=== PATIENT | male | born 1990 | race Caucasian/White ===

== ENCOUNTER 2021-01-04 13:03 | Inpatient (IN) | payer OTHER, SELFPAY ==
[2021-01-04] VITALS (38 sets, daily range): BP systolic 108–168; BP diastolic 43–95; PULSE 95–182; RESP 3–43; TEMP 36.6–37.1; O2SAT 94–100
--- NOTE | 2021-01-04 13:09 | XR_ITS ---
WS: [id number] Exam: XR chest 1V portable [id number] Date/Time of Exam: 01/04/2021 1:13 PM Reason For Exam: dyspnea/cough No prior studies. Findings: The lungs are clear and fully expanded. Costophrenic angles are sharp. No infiltrates. Bronchovascula r relief appears normal. Cardiac silhouette is unremarkable. Bony elements are intact. XR/XR chest 1V portable [id number] IMPRESSION: Unremarkable chest radiograph.
--- NOTE | 2021-01-04 13:11 | W.ED.PSYCH ---
HPI - Psych General: Chief Complaint: Overdose Stated Complaint: OVERDOSE Time Seen by Provider: 01/04/21 13:09 History of Present Illness: HPI Narrative: 30-year-old male with multiple medications in attempt to harm himself. He had told both EMS and me when he first arrived to that he intended to kill himself by taking the medications. According to the father he has done this before his is a history of methamphetamine use on arrival here. He appears hypermanic behaving erratically consistent with methamphetamine intoxication. He does admit to me he was trying to harm himself. He is fixated on talking to his father immediately. On arrival he is tachycardic and tachypneic his sats are normal temperature is normal. MD complaint: suicidal ideation Onset (ago): minute(s) Duration: constant History of same: Yes Relieving factors: none Exacerbating factors: none Associated psychiatric symptoms: none Associated symptoms: Reports no associated symptoms Treatments prior to arrival: none If self harm: admits thoughts of self harm, has plan, has acted on plan and intentional overdose Review of Systems Const: Denies: fever(s), chills, body aches, fatigue or malaise ENMT: Denies: throat pain, ear or mastoid pain, nasal discharge or nasal congestion Card: Denies: chest pain or edema Resp: Denies: dyspnea or productive cough GI: Denies: abdominal pain, nausea, vomiting, diarrhea, constipation or hematochezia : Denies: flank pain, dysuria, urinary frequency or urinary urgency PFS ED PFSH: Medical History Heart problem Describes tissue around the heart . Is not sure about details. It was in his teens. States probably due to early drug use. When asked if had to take IV antibiotics for a long time states he is. 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 Family History Sister Vesicoureteral reflux Social History Smoking and tobacco status: current every day smoker cigarettes [ Other cigarette details: 1-1.5 ppd ] Alcohol intake: never Substance/Drug Use: never Lives independently: No Household members: family and other Details: father Marital status: Single Current occupational status: unemployed Physical Exam Const: COMMON NORMALS: no acute distress GENERAL APPEARANCE: cooperative and comfortable ORIENTATION/CONSCIOUSNESS: Yes awake, Yes oriented to person, Yes oriented to place and Yes oriented to time HENMT: COMMON NORMALS: normocephalic, atraumatic and hearing grossly normal bilaterally HEAD & SCALP: normocephalic and atraumatic Neck/C-Spine: COMMON NORMALS: no JVD Resp: COMMON NORMALS: normal respiratory effort, No retractions, No use of accessory muscles and clear to auscultation bilaterally AUSCULTATION: clear to auscultation bilaterally Cardio: COMMON NORMALS: no JVD, regular rate, regular rhythm and No murmurs present (Cardio) RATE: regular rate RHYTHM: regular rhythm GI: COMMON NORMALS: Soft to palpation and No hepatosplenomegaly present AUSCULTATION: Yes normoactive bowel sounds PALPATION: Yes Soft to palpation, No Tenderness to palpation present (GI), No Guarding due to palpation present (GI) and Yes No hepatosplenomegaly present Extremity: COMMON NORMALS: normal to inspection, capillary refill normal, no clubbing, cyanosis or edema, no calf tenderness and no pedal edema Neuro: SENSORIUM/ORIENTATION: Yes oriented to person, Yes oriented to place and Yes oriented to time Skin: COMMON NORMALS: no rashes or lesions noted GENERAL SKIN EXAM: no rashes or lesions noted Face to Face: Restrn/Seclusion Events leading up to initiation: Combative/Striking out at staff or others Evaluation of patient's immediate situation: No signs of physical distress and Signs of psychological distress Patient reaction since intervention applied: De-escalation/no displays of violent/destructive behavior Recent labs reviewed: No (Pending labs to be reviewed. Patient combative arrival in the ER) Review of medications: Yes Patient's current medical/behavioral condition: No new concerns since last ROS Need for restraint or seclusion is: Continued Attending notified: Attending completed assessment Course Vital Signs: Vital signs: Vital Signs Temperature 98.8 F 01/07/21 11:56 Pulse Rate 51 L 01/07/21 11:56 Respiratory Rate 15 01/07/21 11:56 Blood Pressure 112/66 01/07/21 11:56 Pulse Oximetry 96 01/07/21 11:56 MDM - Psych MDM Narrative: Medical decision making narrative: Patient admits to recent intentional overdose to try to harm himself. Patient placed on a 96-hour hold admitted to the ICU for medical monitoring also consult psych. Lab Data: Labs: Lab Results 01/04/21 01/04/21 01/04/21 Range/Units 13:20 13:20 13:20 WBC 17.1 H (4.0-10.0) 10^3/ uL RBC 5.16 (4.1-5.3) 10^6/u L Hgb 14.8 (11.7-16.6) g/dL Hct 44.7 (42.0-52.0) % MCV 86.6 (80-94) fL MCH 28.7 (28.0-34.0) pg MCHC 33.1 (30.0-36.0) g/dL RDW 12.7 (12.1-15.1) % Plt Count 411 H (130-400) 10^3/c mm MPV 11.3 H (7.4-10.4) fL Neut % (Auto) 78.7 % Lymph % (Auto) 13.0 % [place] % (Auto) 7.5 % Eos % (Auto) 0.0 % Baso % (Auto) 0.4 % Neut # (Auto) 13.42 H (1.8-7.7) 10^3/u L Lymph # (Auto) 2.2 (0.8-4.8) 10^3/u L Independence # (Auto) 1.3 H (0.2-0.9) 10^3/u L Eos # (Auto) 0.0 (0.0-0.8) 10^3/u L Baso # (Auto) 0.1 (0.0-0.1) 10^3/u L Nucleated RBC % (a uto) 0 % Nucleated RBCs # 0.0 /100WBC Specimen Type Sample Site ABG pH (7.35-7.45) ABG pCO2 (35-45) mmHg ABG pO2 (80.0-100.0) mmH g ABG HCO3 (22-26) mmol/L ABG O2 Saturation ABG Base Excess (-2.0-2.0) mmol/ L Kunal Test A-a O2 Gradient (5-10) mmHg Hematocrit (42-52) % Hgb O2 Saturation (95-100) % Carboxyhemoglobin (0.4-20.1) %THgb Methemoglobin (0.4-1.5) % Total Hemoglobin (14-18) g/dL Ionized Calcium (1.1-1.4) mmol/L O2 Delivery Device FiO2 % Box Truck Owner Operator ID Sodium 140 (136-145) mmol/L Potassium 3.8 (3.5-5.1) mmol/L Chloride 102 (98-107) mmol/L Carbon Dioxide 21 L (22-29) mmol/L Anion Gap 20.8 H (5-19) BUN 12 (6-20) mg/dL Creatinine 1.4 H (0.7-1.2) mg/dL GFR Calculation 59.1 L (90-130) mL/min Glucose 132 H (65-115) mg/dL Calculated Osmolal ity 292 (285-295) mOsm/k g Calcium 9.6 (8.5-10.5) mg/dL Magnesium 1.5 L (1.7-2.3) mg/dL Total Bilirubin 0.2 (0.15-1.2) mg/dL AST 16 (0-40) U/L ALT 18 (0-41) U/L Alkaline Phosphata se 79 (40-130) IU/L Total Protein 7.3 (6.6-8.7) g/dL Albumin 4.6 (3.5-5.2) g/dL Globulin 2.7 (1.3-4.6) g/dL Lipase 13 (13-60) U/L Urine Color (Yellow) Urine Appearance (CLEAR) Urine pH (5-7) Ur Specific Gravit y (1.005-1.030) Urine Protein (Negative) Urine Glucose (UA) (Normal) Urine Ketones (Negative) Urine Blood (Negative) Urine Nitrate (Negative) Urine Bilirubin (Negative) Urine Urobilinogen (Negative) mg/dL Ur Leukocyte Cori ase (Negative) Salicylates < 0.3 L (3-10) mg/dL Urine Opiates Scre en (Negative) ng/mL Acetaminophen < 5.0 L (10-30) ug/mL Ur Barbiturates Sc reen (Negative) ng/mL Ur Phencyclidine S crn (Negative) ng/mL Amphetamines ng/mL Ur Amphetamines Sc reen (Negative) ng/mL Methamphetamine GC /MS ng/mL Methylenedioxyamph MDA MDEA Urine MDMA U Benzodiazepines Scrn (Negative) ng/mL Urine Cocaine Scre en (Negative) ng/mL U Marijuana (THC) Screen (Negative) ng/mL Ethyl Alcohol < 10 (0-10) mg/dL Serum Ketones Negative (Negative) 01/04/21 01/04/21 01/04/21 Range/Units 13:20 13:23 15:15 WBC (4.0-10.0) 10^3/ uL RBC (4.1-5.3) 10^6/u L Hgb (11.7-16.6) g/dL Hct (42.0-52.0) % MCV (80-94) fL MCH (28.0-34.0) pg MCHC (30.0-36.0) g/dL RDW (12.1-15.1) % Plt Count (130-400) 10^3/c mm MPV (7.4-10.4) fL Neut % (Auto) % Lymph % (Auto) % Independence % (Auto) % Eos % (Auto) % Baso % (Auto) % Neut # (Auto) (1.8-7.7) 10^3/u L Lymph # (Auto) (0.8-4.8) 10^3/u L Independence # (Auto) (0.2-0.9) 10^3/u L Eos # (Auto) (0.0-0.8) 10^3/u L Baso # (Auto) (0.0-0.1) 10^3/u L Nucleated RBC % (a uto) % Nucleated RBCs # /100WBC Specimen Type Arterial Sample Site Radial, left ABG pH 7.42 (7.35-7.45) ABG pCO2 30.9 L (35-45) mmHg ABG pO2 61.2 L (80.0-100.0) mmH g ABG HCO3 20.0 L (22-26) mmol/L ABG O2 Saturation 93.4 ABG Base Excess -3.3 L (-2.0-2.0) mmol/ L Kunal Test Pos A-a O2 Gradient 6.6 (5-10) mmHg Hematocrit 46.5 (42-52) % Hgb O2 Saturation 90.3 L (95-100) % Carboxyhemoglobin 2.2 (0.4-20.1) %THgb Methemoglobin 1.0 (0.4-1.5) % Total Hemoglobin 15.2 (14-18) g/dL Ionized Calcium 1.2 (1.1-1.4) mmol/L O2 Delivery Device Room air FiO2 21.0 % Box Truck Owner Operator ID Cak Sodium 144.0 H (136-145) mmol/L Potassium 3.1 L (3.5-5.1) mmol/L Chloride (98-107) mmol/L Carbon Dioxide (22-29) mmol/L Anion Gap (5-19) BUN (6-20) mg/dL Creatinine (0.7-1.2) mg/dL GFR Calculation (90-130) mL/min Glucose 134.0 H (65-115) mg/dL Calculated Osmolal ity (285-295) mOsm/k g Calcium (8.5-10.5) mg/dL Magnesium (1.7-2.3) mg/dL Total Bilirubin (0.15-1.2) mg/dL AST (0-40) U/L ALT (0-41) U/L Alkaline Phosphata se (40-130) IU/L Total Protein (6.6-8.7) g/dL Albumin (3.5-5.2) g/dL Globulin (1.3-4.6) g/dL Lipase (13-60) U/L Urine Color Yellow (Yellow) Urine Appearance Clear (CLEAR) Urine pH 5 (5-7) Ur Specific Gravit y 1.020 (1.005-1.030) Urine Protein Neg (Negative) Urine Glucose (UA) Norm (Normal) Urine Ketones Negative (Negative) Urine Blood Neg (Negative) Urine Nitrate Negative (Negative) Urine Bilirubin Neg (Negative) Urine Urobilinogen Norm (Negative) mg/dL Ur Leukocyte Cori ase Negative (Negative) Salicylates (3-10) mg/dL Urine Opiates Scre en (Negative) ng/mL Acetaminophen < 5.0 L (10-30) ug/mL Ur Barbiturates Sc reen (Negative) ng/mL Ur Phencyclidine S crn (Negative) ng/mL Amphetamines ng/mL Ur Amphetamines Sc reen (Negative) ng/mL Methamphetamine GC /MS ng/mL Methylenedioxyamph MDA MDEA Urine MDMA U Benzodiazepines Scrn (Negative) ng/mL Urine Cocaine Scre en (Negative) ng/mL U Marijuana (THC) Screen (Negative) ng/mL Ethyl Alcohol (0-10) mg/dL Serum Ketones (Negative) 01/04/21 01/04/21 Range/Units 15:15 15:15 WBC (4.0-10.0) 10^3/ uL RBC (4.1-5.3) 10^6/u L Hgb (11.7-16.6) g/dL Hct (42.0-52.0) % MCV (80-94) fL MCH (28.0-34.0) pg MCHC (30.0-36.0) g/dL RDW (12.1-15.1) % Plt Count (130-400) 10^3/c mm MPV (7.4-10.4) fL Neut % (Auto) % Lymph % (Auto) % Independence % (Auto) % Eos % (Auto) % Baso % (Auto) % Neut # (Auto) (1.8-7.7) 10^3/u L Lymph # (Auto) (0.8-4.8) 10^3/u L Independence # (Auto) (0.2-0.9) 10^3/u L Eos # (Auto) (0.0-0.8) 10^3/u L Baso # (Auto) (0.0-0.1) 10^3/u L Nucleated RBC % (a uto) % Nucleated RBCs # /100WBC Specimen Type Sample Site ABG pH (7.35-7.45) ABG pCO2 (35-45) mmHg ABG pO2 (80.0-100.0) mmH g ABG HCO3 (22-26) mmol/L ABG O2 Saturation ABG Base Excess (-2.0-2.0) mmol/ L Kunal Test A-a O2 Gradient (5-10) mmHg Hematocrit (42-52) % Hgb O2 Saturation (95-100) % Carboxyhemoglobin (0.4-20.1) %THgb Methemoglobin (0.4-1.5) % Total Hemoglobin (14-18) g/dL Ionized Calcium (1.1-1.4) mmol/L O2 Delivery Device FiO2 % Box Truck Owner Operator ID Sodium (136-145) mmol/L Potassium (3.5-5.1) mmol/L Chloride (98-107) mmol/L Carbon Dioxide (22-29) mmol/L Anion Gap (5-19) BUN (6-20) mg/dL Creatinine (0.7-1.2) mg/dL GFR Calculation (90-130) mL/min Glucose (65-115) mg/dL Calculated Osmolal ity (285-295) mOsm/k g Calcium (8.5-10.5) mg/dL Magnesium (1.7-2.3) mg/dL Total Bilirubin (0.15-1.2) mg/dL AST (0-40) U/L ALT (0-41) U/L Alkaline Phosphata se (40-130) IU/L Total Protein (6.6-8.7) g/dL Albumin (3.5-5.2) g/dL Globulin (1.3-4.6) g/dL Lipase (13-60) U/L Urine Color (Yellow) Urine Appearance (CLEAR) Urine pH (5-7) Ur Specific Gravit y (1.005-1.030) Urine Protein (Negative) Urine Glucose (UA) (Normal) Urine Ketones (Negative) Urine Blood (Negative) Urine Nitrate (Negative) Urine Bilirubin (Negative) Urine Urobilinogen (Negative) mg/dL Ur Leukocyte Cori ase (Negative) Salicylates (3-10) mg/dL Urine Opiates Scre en Negative (Negative) ng/mL Acetaminophen (10-30) ug/mL Ur Barbiturates Sc reen Negative (Negative) ng/mL Ur Phencyclidine S crn Negative (Negative) ng/mL Amphetamines 1200 ng/mL Ur Amphetamines Sc reen Positive H (Negative) ng/mL Methamphetamine GC /MS >28785 ng/mL Methylenedioxyamph MDA negative MDEA negative Urine MDMA negative U Benzodiazepines Scrn Negative (Negative) ng/mL Urine Cocaine Scre en Negative (Negative) ng/mL U Marijuana (THC) Screen Positive H (Negative) ng/mL Ethyl Alcohol (0-10) mg/dL Serum Ketones (Negative) Discharge Plan Discharge Patient Disposition: Admitted As Inpatient Admit Provider: Jacky Villanueva Clinical Impression: Suicide attempt by multiple drug overdose, Methamphetamine use, SUZE (acute kidney injury) Condition: Stable Discharge Diet: Regular Discharge Activity: Resume usual activity Coding Level of Care Code ED Conference Specialist for Chg Fwd Exam Comprehensive
[2021-01-04] MEDS: ziprasidone 20 mg/mL SDV 10 MG IM (13:15)
[2021-01-04] MEDS: LORazepam 2 mg/mL INJ 1 mL (13:25)
[2021-01-04] MEDS: sodium chloride 0.9% 1,000 ML 999 ML IV ×2 (13:31→15:15)
[2021-01-04 13:33] LABS: ABG PCO2 30.9 mmHg (35-45); ABG PH Result 7.42 (7.35-7.45); Alveolar-Arterial Oxygen Gradi 6.6 mmHg (5-10); Arterial Blood Gas Hematocrit 46.5 % (42-52); Base Excess ABG -3.3 mmol/L (-2.0-2.0); Blood Gas Allen Test Pos; Blood Gas Operator Identificat CAK; Blood Gas Sample Site Radial, left; Blood Gas Sample Type Arterial; Carboxyhemoglobin 2.2 %THgb (0.4-20.1); HGB O2 Sat 90.3 % (95-100); Ionized Calcium Level - ABG 1.2 mmol/L (1.1-1.4); Oxygen Device ROOM AIR; Oxygen Saturation ABG 93.4; PO2 ABG 61.2 mmHg (80.0-100.0); Potassium Level - ABG 3.1 mmol/L (3.5-5.0); Total Hemoglobin 15.2 g/dL (14-18)
[2021-01-04 13:37] LABS: Basophils # 0.1 10^3/uL (0.0-0.1); Basophils % 0.4 %; Hematocrit 44.7 % (42.0-52.0); Hemoglobin 14.8 g/dL (11.7-16.6); Lymphocytes # 2.2 10^3/uL (0.8-4.8); Mean Corpuscular HGB Conc 33.1 g/dL (30.0-36.0); Mean Corpuscular Hemoglobin 28.7 pg (28.0-34.0); Mean Corpuscular Volume 86.6 fL (80-94); Mean Platelet Volume 11.3 fL (7.4-10.4); Monocytes # 1.3 10^3/uL (0.2-0.9); Monocytes % 7.5 %; Neutrophils # 13.42 10^3/uL (1.8-7.7); Neutrophils % 78.7 %; Nucleated Red Blood Cells % 0 %; Platelet Count 411 10^3/cmm (130-400); Red Blood Count 5.16 10^6/uL (4.1-5.3); Red Cell Distribution Width 12.7 % (12.1-15.1); White Blood Count 17.1 10^3/uL (4.0-10.0)
[2021-01-04 13:50] LABS: Acetaminophen < 5.0 ug/mL (10-30); Alanine Aminotransferase 18 U/L (0-41); Albumin Level 4.6 g/dL (3.5-5.2); Alcohol Level < 10 mg/dL (0-10); Alkaline Phosphatase 79 IU/L (40-130); Anion Gap 20.8 (5-19); Aspartate Amino Transferase 16 U/L (0-40); Blood Urea Nitrogen 12 mg/dL (6-20); Calcium 9.6 mg/dL (8.5-10.5); Carbon Dioxide 21 mmol/L (22-29); Chloride 102 mmol/L (98-107); Globulin 2.7 g/dL (1.3-4.6); Glomerular Filtration Rate 59.1 mL/min (90-130); Glucose 132 mg/dL (65-115); Lipase 13 U/L (13-60); Magnesium 1.5 mg/dL (1.7-2.3); Osmolality Calculated 292 mOsm/kg (285-295); Potassium 3.8 mmol/L (3.5-5.1); Salicylate < 0.3 mg/dL (3-10); Sodium 140 mmol/L (136-145); Total Bilirubin 0.2 mg/dL (0.15-1.2); Total Protein 7.3 g/dL (6.6-8.7)
[2021-01-04 13:52] LABS: Ketone (Acetest) Serum Negative (Negative)
[2021-01-04 15:26] LABS: Add Urine Microscopic? NO; Charge for UA Resulting for Rev
[2021-01-04 15:40] LABS: Bilirubin Urine Neg (Negative); Blood Urine Neg (Negative); Glucose Urine UA Norm (Normal); Ketones Urine Negative (Negative); Leukocyte Esterase Urine Negative (Negative); Nitrate Urine Negative (Negative); Protein Urine Neg (Negative); Urine Appearance Clear (CLEAR); Urine Color Yellow (Yellow); Urobilinogen Urine Norm (Negative); pH Urine 5 (5-7)
[2021-01-04 15:47] LABS: Amphetamines Screen Urine Positive (Negative); Barbiturates Screen Urine Negative (Negative); Benzodiazepines Screen Urine Negative (Negative); Cocaine Screen Urine Negative (Negative); Opiate Screen Urine Negative (Negative); PCP Screen Urine Negative (Negative); THC Screen Urine Positive (Negative)
--- NOTE | 2021-01-04 16:01 | PC.CHAP ---
Pastoral Care Encounter/Spiritual Assessment Type of Contact [] Declined vitreo retinal surgeon visit [x] Patient/Family/Request visit [] Outpatient visit [] Follow-up visit [] Physician referral [] Code/Alert [] Routine visit [] Staff referral [] Actively dying [] Patient sleeping [] Family support [] [] Out of room [] Palliative care [] [] Receiving care in room [] Pre-surgical visit [] Trauma [] Long length of stay [] ICU visit [x] Other: ED Relational/Emotional Strength [] Patient feels connected with others/family/visitors/staff [x] Distress [] Loneliness/isolation [] Abandonment Spirituality of Patient [] Person of Chari [] Attends [facility] of their Chari [] Believes in Prayer [] Reads Bible or Jain materials [x] There are Spiritual issues to be addressed Investor Interventions [z] Prayer [x Active listening [x] Non-anxious presence [x] Spiritual/emotional support [] Crisis/trauma care [x] Spiritual counseling [] Bereavement support [] Provided bereavement packet [] Provided Bible/devotional materials [] Provided toy/stuffed animal, coloring book to patient or family member [] Provided Communion [] Anointing/[place] [] Salvation [x] Completed spiritual assessment [] Other: Impact on Illness or Injury [] Angry [z] Fearful [z] Anxious [] Often cries [] Exhaustion [] Unable to work [] Unable to attend congregation [] Unable to walk/stand [] Unable to read [] Unable to drive [] Unable to eat/drink [] Unable to sleep [] Unable to be with family [] Patient intubated [] Other: Summary Patient ask for Investor. Investor inquired of any needs, patient ask for prayer. Time spent with patient 10 min
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
[2021-01-04 17:49] LABS: Acetaminophen < 5.0 ug/mL (10-30)
[2021-01-04] MEDS: pantoprazole DR 40 mg Tablet PO (17:50)
[2021-01-04] MEDS: dextrose 5%-sod chloride 0.45% 1,000 ML 100 ML IV (17:50)
[2021-01-04] MEDS: magnesium sulfate premix 2 GM/50 ML PIGGYBACK IV (19:08)
[2021-01-05] VITALS (33 sets, daily range): BP systolic 104–138; BP diastolic 65–96; PULSE 67–115; RESP 14–25; TEMP 36.6–37.1; O2SAT 93–98
[2021-01-05 00:38] LABS: Acetaminophen < 5.0 ug/mL (10-30)
[2021-01-05] MEDS: dextrose 5%-sod chloride 0.45% 1,000 ML 100 ML IV (03:48)
[2021-01-05 05:39] LABS: Basophils % 0.5 %; Eosinophils % 0.6 %; Hematocrit 40.5 % (42.0-52.0); Hemoglobin 13.2 g/dL (11.7-16.6); Lymphocytes # 1.8 10^3/uL (0.8-4.8); Lymphocytes % 26.8 %; Mean Corpuscular HGB Conc 32.6 g/dL (30.0-36.0); Mean Corpuscular Hemoglobin 28.8 pg (28.0-34.0); Mean Corpuscular Volume 88.2 fL (80-94); Mean Platelet Volume 11.1 fL (7.4-10.4); Monocytes # 0.6 10^3/uL (0.2-0.9); Monocytes % 8.3 %; Neutrophils # 4.24 10^3/uL (1.8-7.7); Neutrophils % 63.6 %; Nucleated Red Blood Cells % 0 %; Platelet Count 217 10^3/cmm (130-400); Red Blood Count 4.59 10^6/uL (4.1-5.3); Red Cell Distribution Width 12.8 % (12.1-15.1); White Blood Count 6.7 10^3/uL (4.0-10.0)
[2021-01-05 06:05] LABS: Alanine Aminotransferase 13 U/L (0-41); Alkaline Phosphatase 70 IU/L (40-130); Aspartate Amino Transferase 15 U/L (0-40); Blood Urea Nitrogen 9 mg/dL (6-20); Calcium 8.6 mg/dL (8.5-10.5); Carbon Dioxide 25 mmol/L (22-29); Chloride 109 mmol/L (98-107); Globulin 2.4 g/dL (1.3-4.6); Glomerular Filtration Rate 98.4 mL/min (90-130); Glucose 118 mg/dL (65-115); Osmolality Calculated 294 mOsm/kg (285-295); Sodium 142 mmol/L (136-145); Total Bilirubin 0.3 mg/dL (0.15-1.2); Total Protein 6.4 g/dL (6.6-8.7)
[2021-01-05 08:31] LABS: Magnesium 2.1 mg/dL (1.7-2.3)
--- NOTE | 2021-01-05 10:13 | PM.PN ---
Subjective Subjective: Interval history: This morning he wakes up to speech. He has no headache, dizziness, no nausea, no pain or discomfort. No abdominal pain. Spontaneously reports he is wanting to speak with the therapist and states I took all those medications, yes, but I did not really mean to kill myself . Vitals/I&O/Wt Last Vital Signs Temp 98.6 F 01/05/21 09:00 Pulse 67 01/05/21 09:00 Resp 15 01/05/21 09:00 BP 121/71 01/05/21 09:00 Pulse Ox 98 01/05/21 09:00 01/04/21 01/05/21 01/05/21 22:59 06:59 14:59 Intake Total 2303.5 / 2303.5 1236.667 / 3540.167 50 / 50 Output Total 700 / 700 600 / 1300 Balance 1603.5 / 1603.5 636.667 / 2240.167 50 / 50 Weight last 48 hrs Weight 75.296 kg Weight 71.214 kg Physical Exam Const: COMMON NORMALS: no acute distress, patient oriented x3 and alert GENERAL APPEARANCE: cooperative and comfortable ORIENTATION/CONSCIOUSNESS: Yes awake HENMT: COMMON NORMALS: oropharynx normal Neck/C-Spine: COMMON NORMALS: no JVD Resp: COMMON NORMALS: normal respiratory effort and clear to auscultation bilaterally AUSCULTATION: clear to auscultation bilaterally Cardio: COMMON NORMALS: no JVD, regular rhythm, S1 normal heart sound present, S2 normal heart sound present and No murmurs present (Cardio) RATE: tachycardic RHYTHM: regular rhythm HEART SOUNDS: S1 normal heart sound present and S2 normal heart sound present GI: COMMON NORMALS: Normal to inspection, nondistended, normoactive bowel sounds present, Soft to palpation and non-tender PALPATION: Yes Soft to palpation Extremity: COMMON NORMALS: no joint enlargement and no pedal edema Neuro: COMMON NORMALS: patient oriented x3 and moves all extremities SENSORIUM/ORIENTATION: Yes alert Skin: COMMON NORMALS: no rashes or lesions noted GENERAL SKIN EXAM: no rashes or lesions noted Data : 01/05/21 05:07 01/05/21 05:07 A&P Assessment and plan (1) Deliberate medication overdose: Did well overnight. Tachycardia resolved. He is awake, alert, not in any distress or discomfort. Liver parameters remain normal. SUZE resolved. Acetaminophen level never increased. Unclear whether positive amphetamine in urine is secondary to true amphetamine use, versus cross-reactivity with one of the medications he may have taken. Confirmatory testing had been requested and pending. Discussed with psychiatry, transfer being arranged for additional assessment on neuropsychiatric unit. Status: Acute (2) Metabolic encephalopathy: Resolved. Possibly secondary to unidentified medication ingestion, possibly Wellbutrin, possibly secondary to amphetamine or marijuana related psychosis, intoxication versus withdrawal. Status: Acute (3) Acetaminophen overdose: Acetaminophen level never jayna. Liver parameters remain normal. Recheck 1 more additional CMP tomorrow. Status: Acute (4) SUZE (acute kidney injury): Resolved. Status: Acute (5) Leukocytosis: Resolved. Suspected stress-induced. Chest x-ray without suggestion of pneumonia. UA unremarkable. Sinus tachycardia, although at this time sepsis not suspected. Suspected secondary to metabolic abnormalities with medication overdose. Consider any changes in symptoms. Status: Acute (6) Depression: Reports history of depression which has not been treated. Pending psychiatric assessment. Requested records from recent admission in [place]. He is transitioning for additional assessment over at neuropsychiatric unit. Status: Acute (7) Positive urine drug screen: Amphetamine confirmation test requested. Positive for marijuana. Also positive for amphetamine. Difficult to determine whether true amphetamine or cross-reactivity for another medication. Father states has not seen him use drugs. States he has been going to a house across the street from the [facility], although states they are not known for doing meth there . At the same time there is possibility patient overdose on Wellbutrin per report by ER. Patient's father states he takes medication to quit smoking, but does not remember the name. He will double check on it when he comes back from work to the motel. Monitor for any possible withdrawal. Status: Acute (8) Hypomagnesemia: Replaced hypomagnesemia. Status: Acute Additional A&P Information Patient speaking to himself: Father reports intermittent episodes of patient speaking to himself. Unclear whether having auditory or visual hallucinations. Father denies patient ever telling him about this. Denies any no history of developmental or autism spectrum disorder. Father does describe perhaps that patient may have poor coping skills, at times patient will not leave his side. Other times feels patient may be acting out if he does not give him enough attention. Father states at the [facility] there is poor nurse receptionist. States he is staying at the [facility] motel in [place], room 16 in case he needs to be reached urgently and cannot be gotten a hold off on his cell phone. Attestations Medical Necessity Statement*: Continue further assessment and management of deliberate medication overdose, depression on neuropsychiatric [place]. Coding Level of Care Code Acute Javascript Programmer for Jennie San Diagnoses Deliberate medication overdose T50.902A Metabolic encephalopathy G93.41 Acetaminophen overdose T39.1X1A SUZE (acute kidney injury) N17.9 Leukocytosis D72.829 Depression F32.9 Positive urine drug screen R82.5 Hypomagnesemia E83.42
[2021-01-05] MEDS: hyDROXYzine 25 mg Capsule 50 MG PO ×2 (13:35→21:17)
[2021-01-05] MEDS: pantoprazole DR 40 mg Tablet PO (16:28)
--- NOTE | 2021-01-05 17:04 | USR_ITS ---
PROCEDURE INFORMATION: Exam: US Retroperitoneal; Complete; Kidneys and Bladder Exam date and time: 01/05/2021 9:05 AM Age: 30 years old Clinical indication: Abnormal findings; Abnormal lab test; Abnormal kidney function lab tests; Additional info: Kishore, HX reflux, assess for hydronephrosis TECHNIQUE: Imaging protocol: Real-time ultrasound of the retroperitoneum with image documentation. Complete exam focused on the kidneys and bladder. COMPARISON: No relevant prior studies available. FINDINGS: Right kidney: Normal. No stones. No hydronephrosis. 11 cm x 5 cm x 5.3 cm Left kidney: Normal. No stones. No hydronephrosis. 9.5 cm x 4.2 cm x 3.6 cm Left renal cortex is thin measuring 3.4 mm Urinary bladder: Urinary bladder wall is thickened measuring 8.9 mm on postvoid view a Prostate: Prominent prostate gland Other findings: Right cortex 1.4 cm; postvoid volume is 19 cc. Prevoid volume is 87 cc. US/US renal BI with PV bladder IMPRESSION: 1. Unremarkable and right kidney and urinary bladder. 2. Scattered calcified densities in the spleen 3. Left renal cortex is thin otherwise negative left kidney.
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
[2021-01-05] MEDS: trazodone 50 mg Tablet PO (21:17)
[2021-01-06] VITALS: BP 104/69; PULSE 97; RESP 16; TEMP 36.6; O2SAT 96
[2021-01-06 06:00] VITALS: BP 105/63; PULSE 57; RESP 17; TEMP 36.5; O2SAT 96
[2021-01-06 11:28] LABS: Alanine Aminotransferase 11 U/L (0-41); Albumin Level 4.2 g/dL (3.5-5.2); Alkaline Phosphatase 76 IU/L (40-130); Anion Gap 11.4 (5-19); Aspartate Amino Transferase 12 U/L (0-40); Blood Urea Nitrogen 15 mg/dL (6-20); Calcium 8.8 mg/dL (8.5-10.5); Carbon Dioxide 27 mmol/L (22-29); Chloride 105 mmol/L (98-107); Globulin 2.4 g/dL (1.3-4.6); Glomerular Filtration Rate 98.4 mL/min (90-130); Glucose 87 mg/dL (65-115); Osmolality Calculated 288 mOsm/kg (285-295); Potassium 4.4 mmol/L (3.5-5.1); Sodium 139 mmol/L (136-145); Total Bilirubin 0.4 mg/dL (0.15-1.2); Total Protein 6.6 g/dL (6.6-8.7)
[2021-01-06 14:00] VITALS: BP 105/55; PULSE 64; RESP 18; TEMP 36.7; O2SAT 96
--- NOTE | 2021-01-06 15:30 | P.PN_ITS ---
Subjective NPU Subjective: Interval history: Jack presents today reporting that he continues to feel better and continues to report a plan to return back of his father. He continues to downplay his behaviors from the previous day and deny any suicidal thinking now or ever and reports that this was a gesture for pain. 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 We have significant concerns about his unwillingness to identify behavior as a reflection of what was, impulsive at the very least para suicidal behavior. We discussed working with the treatment team for discharge in the next 48 hours if we are able to confirm a safe discharge possibility and is able to contract for safety. Mental Status Exam MSE Comments: This is a well-nourished, well-developed white male in hospital scrubs with adequate grooming and limited eye contact. No abnormal movements. Cooperative with exam in no acute distress. Speech was mostly normal rate and volume. Mood described as good, affect appeared euthymic. Thought process organized. Thought content: Patient denied suicidal or homicidal ideations, there were no delusions reported or noted, he denied any auditory or visual hallucinations. Attention and concentration appeared intact and memory seem reliable but none were formally tested. He is alert and oriented x3. Insight and judgment are limited, impulse control is limited. Vitals/I&O/Wt Last Vital Signs Temp 97.2 F L 01/06/21 21:41 Pulse 67 01/06/21 21:41 Resp 15 01/06/21 21:41 BP 113/72 01/06/21 21:41 Pulse Ox 98 01/06/21 21:41 Weight last 48 hrs Weight 75.296 kg Weight 75.296 kg Weight 75.296 kg Data NPU : 01/05/21 05:07 01/06/21 10:23 A&P Additional A&P Information (1) Hypomagnesemia: (2) Acetaminophen overdose: (3) Depression: (4) Leukocytosis: (5) SUZE (acute kidney injury): (6) Metabolic encephalopathy: (7) Deliberate medication overdose: (8) Methamphetamine use: (9) Cannabis abuse: Additional A&P Information This is a 30-year-old white male with a long history of mental health issues and treatment with recent significant psychosocial stressors and active addiction who presents after an intentional ingestion that he currently is denying it related to any thoughts for lethality. 1. Continue current medication. We will continue to offer him medications to assist with his depression and anxiety. 2. Continue every 15 minute checks for safety. 3. Encourage individual, group and milieu therapies. 4. Encourage sober living treatment after discharge at the highest level of care to which he is willing to commit. 5. We will continue to evaluate for safety in regards to his 96-hour hold. Involuntary Hold Information 96 Hour Hold: 96 Hour Involuntary Admission: Yes 96 Hour Hold Ending Date: 01/10/21 96 Hour Hold Ending Time: 16:30 Attestations NPU Medical Necessity Statement*: Inpatient hospitalization is medically necessary and the clinically appropriate intervention at this time. We will monitor medications and make changes as indicated. Likely length of stay 1-3 days. Coding Level of Care Code Acute [facility] Security Director for [facility]
[2021-01-06] MEDS: pantoprazole DR 40 mg Tablet PO (16:12)
[2021-01-06] MEDS: trazodone 50 mg Tablet PO (20:25)
[2021-01-06] MEDS: hyDROXYzine 25 mg Capsule 50 MG PO (20:26)
--- NOTE | 2021-01-06 21:36 | PC.NURSE ---
2025 Pt requested Trazadone 50mg PO and Vistaril 50mg po for sleep and anxiety.
[2021-01-06 21:41] VITALS: BP 113/72; PULSE 67; RESP 15; TEMP 36.2; O2SAT 98
[2021-01-07 06:00] VITALS: BP 112/66; PULSE 51; RESP 15; TEMP 37.1; O2SAT 96
[2021-01-07 07:25] VITALS: BMI 24.5
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
[2021-01-07 11:56] VITALS: BP 112/66; PULSE 51; RESP 15; TEMP 37.1; O2SAT 96
--- NOTE | 2021-01-07 19:14 | PC.RESP ---
Smoking Cessation information sent to patient.
[2021-01-09 03:54] LABS: Amphetamine 1200 ng/mL; Methamphetamine >20000 ng/mL; Methylenedioxyamphetamine negative; Methylenedioxyethylamphetamine negative; Methylenedioxymethamphetamine negative
== END 2021-01-07 13:20 | disposition home or self-care (01) | DRG 917 ==
LOC: ER 15:39 → ICU 01-05 08:35 → NP 01-05 10:50
PROVIDERS: Admitting Provider Internal Medicine; Emergency Provider Family Medicine; Visit Provider Psychiatry & Neurology Psychiatry
DX: T50.912A Poisoning by multiple unspecified drugs, medicaments and biological substances, intentional self-harm, initial encounter (principal); G92 Toxic encephalopathy; N17.9 Acute kidney failure, unspecified; T39.1X2A Poisoning by 4-Aminophenol derivatives, intentional self-harm, initial encounter; F32.9 Major depressive disorder, single episode, unspecified; E83.42 Hypomagnesemia; F41.9 Anxiety disorder, unspecified; F15.90 Other stimulant use, unspecified, uncomplicated; F12.10 Cannabis abuse, uncomplicated; D72.829 Elevated white blood cell count, unspecified; R82.5 Elevated urine levels of drugs, medicaments and biological substances; F17.210 Nicotine dependence, cigarettes, uncomplicated; Q62.7 Congenital vesico-uretero-renal reflux; Z91.5 Personal history of self-harm
CPT/HCPCS: 36415; 36600; 71045; 76770; 76857; 80051; 80053; 80306; 80307; 80324; 80359; 81003; 82009; 82330; 82805; 83690; 83735; 85025; 96360; 96361; 96372; 99285; J0132; J2060; J3475; J3486; J7030; J7799